=== PATIENT | male | born 1995 | race Caucasian/White ===

== ENCOUNTER 2016-05-12 15:17 | Emergency (ER) | payer SELFPAY ==
[2016-05-12 15:23] VITALS: TEMP 97.3
[2016-05-12] MEDS ORDERED: IBUPROFEN 600 MG TAB PO ONE ×2 (15:32→15:36)
[2016-05-12] MEDS ORDERED: HYDROCODONE/APAP 5/325 TAB ONE (15:32)
[2016-05-12] MEDS ORDERED: HYDROCODONE/APAP 5/325 TAB PO ONE (15:35)
--- NOTE | 2016-05-12 15:51 | EDPHY ---
H & P Time Seen by Provider: 05/12/16 15:19 HPI/ROS: CHIEF COMPLAINT: left shoulder pain HISTORY OF PRESENT ILLNESS: 20-year-old male presents to the emergency department complaining of left shoulder pain after he fell onto his shoulder while skiing today. Patient denies head strike, denies neck pain, no loss of consciousness, remembers the entire accident. He is [id number], reports constant sharp pain in his left shoulder that is worse with movement, no numbness or tingling in this arm. No other complaints. REVIEW OF SYSTEMS: A comprehensive 10 point review of systems is otherwise negative aside from elements mentioned in the history of present illness. Smoking Status: Current every day smoker Physical Exam: GEN: Awake, alert, oriented, no acute distress RESP: nl resp effort MSK: No C-spine tenderness to palpation, left shoulder with decreased range of motion due to pain, obvious AC deformity with tenderness at AC joint, full flexion and extension of left elbow without tenderness, 2+ radial pulses, sensation intact to light touch, normal deltoid sensation. SKIN: No break in skin, no skin tenting Constitutional: Initial Vital Signs Temperature (C) 36.3 C 05/12/16 15:19 Heart Rate 77 05/12/16 15:19 Respiratory Rate 18 05/12/16 15:19 Blood Pressure 140/71 H 05/12/16 15:19 O2 Sat (%) 96 05/12/16 15:19 O2 Delivery Mode Room Air Allergies/Adverse Reactions: No Known Allergies Allergy (Verified 07/02/14 20:58) Home Medications: Medication Instructions Recorded NO HOME MEDS 02/10/13 Hydrocodone/APAP 5/325 [Montague 1 tab PO Q4H PRN #14 tab 05/12/16 5/325] MDM/Departure - MDM Diagnostics: Left shoulder x-ray independently reviewed by me- Impression: Distal clavicular fracture, with [mild] inferior angulation, with probable type III acromioclavicular separation. E:NW/amm Dictated By: Lexa Lee MD Medications Given: Discontinued Medications Acetaminophen/Hydrocodone Bitart (Montague 5/325) 1 tab PO EDNOW ONE Stop: 05/12/16 15:36 Last Admin: 05/12/16 15:37 Dose: 1 tab Ibuprofen (Motrin) 600 mg PO EDNOW ONE Stop: 05/12/16 15:37 Last Admin: 05/12/16 15:37 Dose: 600 mg - Depart Disposition: Home, Routine, Self-Care Clinical Impression: Separation of left acromioclavicular joint Qualifiers: Encounter type: initial encounter Qualifier Code: (S43.102A) Unspecified dislocation of left acromioclavicular joint, initial encounter Closed fracture of distal clavicle Qualifiers: Encounter type: initial encounter Fracture alignment: displaced Laterality: left Qualifier Code: (S42.032A) Displaced fracture of lateral end of left clavicle, initial encounter for closed fracture Condition: Good Instructions: Acromioclavicular Separation (ED), Clavicle Fracture (ED) Additional Instructions: Rest, ice, take 600mg of ibuprofen every 8 hours with food for 3-5 days as needed for pain and swelling. Take Montague for severe pain. Wear sling for comfort. Return to the emergency department for any numbness, tingling, discoloration of you limb or other concerns. Follow up with orthopedist at 1st available appointment. Call today or tomorrow to schedule this appointment. Prescriptions: Hydrocodone/APAP 5/325 [Montague 5/325] 1 tab PO Q4H PRN #14 tab PRN Reason: Pain, Moderate Referrals: Deng Haile MD [Medical Doctor] - As per Instructions (Orthopedist on-call)
--- NOTE | 2016-05-12 16:24 | DX ---
Left Shoulder, Three Views History: Fall snowboarding. Comparison: None available. Findings: There is a transverse minimally comminuted fracture through the distal clavicle, with mode rate inferior angulation. Widening of the coracoclavicular distance suggests disruption of the corac oclavicular ligament. The distal clavicle is slightly superior to the acromion. Alignment of the gl enohumeral joint is normal. Impression: Distal clavicular fracture, with moderate inferior angulation, with probable type III ac romioclavicular separation. E:NW/himanshum
[2016-05-12 16:49] VITALS: BP 140/72; PULSE 78; RESP 16; O2SAT 97
== END 2016-05-12 16:48 | disposition home or self-care (01) ==
DX: S42.032A Displaced fracture of lateral end of left clavicle, initial encounter for closed fracture (principal); S43.102A Unspecified dislocation of left acromioclavicular joint, initial encounter; F17.200 Nicotine dependence, unspecified, uncomplicated; V00.321A Fall from snow-skis, initial encounter; Y99.8 Other external cause status; Y93.23 Activity, snow (alpine) (downhill) skiing, snowboarding, sledding, tobogganing and snow tubing
CPT/HCPCS: A4565